=== PATIENT | male | born 1995 | race American Indian/Alaskan Native ===

== ENCOUNTER 2018-05-02 15:00 | Inpatient (IN) | payer SELFPAY ==
[2018-05-02 15:11] VITALS: BMI 24.2
[2018-05-02 15:15] VITALS: RESP 18
[2018-05-02 15:40] LABS: BASO % 1.2 % (0.0-2.0); EOS % 0.6 % (0.0-4.0); LYMPH # 1.5 K/uL (1.0-4.3); LYMPH % 38.6 % (20.0-40.0); MEAN CELL VOLUME 92.8 fL (80.0-94.0); MEAN CORPUSCULAR HGB CONC 33.4 g/dL (33.0-37.0); MEAN PLATELET VOLUME 7.1 fL (7.2-11.7); MONO # 0.3 K/uL (0.0-0.8); MONO % 6.8 % (0.0-10.0); NEUT # 2.1 K/uL (1.8-7.0); NEUT % 52.8 % (50.0-75.0); NRBC % 0.1 % (0.0-2.0); RBC 4.53 Mil/uL (4.40-5.90); RED CELL DISTRIBUTION WIDTH 14.8 % (11.5-14.5); WHITE BLOOD COUNT 3.9 K/uL (4.8-10.8)
[2018-05-02 15:42] LABS: SQUAMOUS EPITHIAL < 1 /hpf (0-5); URINE BILIRUBIN NEGATIVE (NEGATIVE); URINE BLOOD NEGATIVE (NEGATIVE); URINE CLARITY Clear (Clear); URINE COLOR Yellow (YELLOW); URINE GLUCOSE (UA) NORMAL (Normal); URINE LEUKOCYTE ESTERASE NEG Leu/uL (Negative); URINE PROTEIN NEGATIVE (NEGATIVE)
[2018-05-02 15:51] LABS: ALB/GLOB RATIO 1.5 (1.0-2.1); ALBUMIN 4.7 g/dL (3.5-5.0); ALT/SGPT 29 U/L (21-72); AST/SGOT 37 U/L (17-59); BLOOD UREA NITROGEN 7 mg/dL (9-20); CALCIUM 9.3 mg/dl (8.6-10.4); GFR NON-AFRICAN AMERICAN 58
[2018-05-02 16:00] LABS: BARBITURATES, UR NEGATIVE (NEGATIVE); BENZODIAZEPINES, UR NEGATIVE (NEGATIVE); OPIATES, UR NEGATIVE (NEGATIVE); PHENCYCLIDINE, UR NEGATIVE (NEGATIVE)
--- NOTE | 2018-05-02 16:47 | C.PDOC ---
History Of Present Illness 23 year old male presents to the ED requesting detoxification from alcohol. Reports his last alcoholic drink was 2 hours ago which consisted of a chacho and a shot of vodka. Admits to daily drinking. Denies any physical complaints. Denies SI/HI, depression, tremors. Time Seen by Provider: 05/02/18 15:19 Chief Complaint (Nursing): Substance Abuse History Per: Patient History/Exam Limitations: no limitations Onset/Duration Of Symptoms: Days Current Symptoms Are (Timing): Still Present Suicide/Self Injury Attempted (Context): None Modifying Factor(s): Alcohol Associated Symptoms: denies: Depression, Suicidal Thoughts, Suicidal Plan Past Medical History Reviewed: Historical Data, Nursing Documentation, Vital Signs Vital Signs: Last Vital Signs Temp 98.7 F 05/02/18 15:11 Pulse 80 05/02/18 15:11 Resp 18 05/02/18 15:11 BP 151/81 H 05/02/18 15:11 Pulse Ox 98 05/02/18 15:11 - Medical History PMH: No Chronic Diseases Denies: Diabetes, Hepatitis, HIV, HTN, Seizures, Sexually Transmitted Disease Surgical History: No Surg Hx Family History: States: No Known Family Hx - Social History Hx Alcohol Use: Yes Hx Substance Use: Yes - Immunization History Hx Tetanus Toxoid Vaccination: No Hx Influenza Vaccination: No Hx Pneumococcal Vaccination: No Review Of Systems Cardiovascular: Negative for: Other (tremors) Psych: Negative for: Depression, Suicidal ideation Physical Exam - Physical Exam Appears: Toxic Skin: Warm, Dry Head: Normacephalic Eye(s): bilateral: Normal Inspection Neck: Normal ROM Chest: Symmetrical Cardiovascular: Rhythm Regular, No Other (tremors) Respiratory: Normal Breath Sounds, No Rales, No Rhonchi, No Wheezing Gastrointestinal/Abdominal: Soft, No Tenderness Extremity: Normal ROM Extremity: Bilateral: Atraumatic Neurological/Psych: Oriented x3, Normal Speech Gait: Steady ED Course And Treatment - Laboratory Results Result Diagrams: 05/02/18 15:35 05/02/18 15:35 O2 Sat by Pulse Oximetry: 98 (RA) Pulse Ox Interpretation: Normal Progress Note: Blood work, UA, UDS ordered and reviewed. 4:50pm- Patient medically cleared. Given sandwich and juice. Disposition - Disposition Forms: [employer] ([place]) - Scribe Statement The provider has reviewed the documentation as recorded by the Scribe Debbi Paneque All medical record entries made by the Florentin were at my direction and personally dictated by me. I have reviewed the chart and agree that the record accurately reflects my personal performance of the history, physical exam, medical decision making, and the department course for this patient. I have also personally directed, reviewed, and agree with the discharge instructions and disposition.
--- NOTE | 2018-05-02 18:43 | PCM.BM ---
<ShailaCookie - Last Filed: 05/02/18 18:42> Treatment Plan Problems - Problems identified on initial assessmt Potential for alcohol withdrawal Date Initiated: 05/02/18 Time Initiated: 18:42 Assessment reference: NA Status: Active Treatment assets and liabiliti Patient Assests: cooperative, ADL independent, physically healthy, negotiates basic needs, cognitively intact Patient Liabilities: substance abuse (ETOH, THC) - Milieu Protocol Maintain good personal hygiene: daily Encourage regular showers, daily Remind patient to perform daily oral care, daily Assist patient to perform ADL's Conduct patient checks and document Observation sheet: Q15 minutes Maintain personal safety: every shift Educate patient to report safety concerns to staff, every shift Monitor environment for contraband/sharps Medication safety: Monitor for expected outcome, potential side effects: every shift, Assess barriers to learning: every shift, Assess readiness for medication education: every shift <Monika Ortega - Last Filed: 05/03/18 13:43> - Diagnosis (1) Alcohol use disorder, severe, dependence Status: Acute Interventions: 05/03/18 13:43 * Assess 7x/week regarding severity of withdrawal * Educate regarding risks, benefits, side effects and alternatives of medications * Use Motivational Interviewing for abstinence * Use CBT for relapse prevention * Medication management for withdrawal symptoms * Encourage medication assisted treatment *
[2018-05-02] MEDS ORDERED: Aluminum Hydroxide/Magnesium Hydroxide Susp (30 mL) PO PRN (21:00)
[2018-05-03] MEDS: Multiple Vitamins Tab PO SCH (09:58)
--- NOTE | 2018-05-03 10:04 | PCM.PSYCH ---
Initial Psychiatric Evaluation - Initial Psychiatric Evaluation Type of Admission: Voluntary Legal Status: Capacity Chief Complaint (in patient's own words): "I need detox" History of Present Illness and Precipitating Events: Patient is a 23-year-old AAM, single with no children, who works at a [employer] company and lives with his mother in [place]. Patient is here for detox from alcohol. Patient states that he drinks about 5-6 margaritas and 3-4 shots every day for the last 4 years. He smokes about 6 cigarettes per day. He denies any past or present drug use, except that he smokes weed. On top of the withdrawal sxs, he reports nervousness and low mood. Patient states that he tried detox 1x last year at [facility]. He has never tried rehab before. He denies any past psychiatric problems or psychiatric hospitalizations. Psych hx: denies Medical hx: denies Family hx: denies. Current Medications: Active Medications Generic Name Dose Route Start Last Admin Trade Name Freq PRN Reason Stop Dose Admin Al Hydrox/Mg Hydrox/Simethicone 30 ml 05/02/18 21:00 Maalox 30 Ml PO TID PRN Indigestion / Heartburn Chlordiazepoxide 25 mg 05/03/18 00:00 05/03/18 06:09 Librium PO 05/07/18 23:59 25 mg Q6 BETO Administration Taper Chlordiazepoxide 25 mg 05/02/18 21:00 05/02/18 21:38 Librium PO 25 mg Q4H PRN Administration Alcohol Withdrawal Clonidine HCl 0.1 mg 05/02/18 21:00 Catapres PO Q4H PRN Symptoms of alcohol withdrawl Folic Acid 1 mg 05/03/18 10:00 05/03/18 09:58 Folic Acid PO 1 mg DAILY BETO Administration Hydroxyzine HCl 25 mg 05/02/18 19:43 Atarax PO Q8 PRN Anxiety Loperamide HCl 2 mg 05/02/18 21:00 Imodium PO Q8 PRN Diarrhea Multivitamins 1 tab 05/03/18 10:00 05/03/18 09:58 Hexavitamin PO 1 tab DAILY BETO Administration Ondansetron HCl 4 mg 05/02/18 21:00 05/02/18 23:24 Zofran Tab PO 4 mg Q8 PRN Administration Nausea/Vomiting Pseudoephedrine HCl 60 mg 10/07/18 21:00 Sudafed Tab PO QID PRN Nasal/Sinus Congestion Thiamine HCl 100 mg 05/03/18 10:00 05/03/18 09:58 Vitamin B1 Tab PO 100 mg DAILY BETO Administration Trazodone HCl 50 mg 05/02/18 19:43 05/02/18 21:37 Desyrel PO 50 mg HS PRN Administration Insomnia Past Psychiatric History - Past Psychiatric History Previous Treatment History: None Pertinent Medical Hx (Current Medical&Sleep Prob, Allergies): Allergies Allergy/AdvReac Type Severity Reaction Status Date / Time No Known Allergies Allergy Verified 05/02/18 15:10 No Known Home Med 05/02/18 Review of Systems - Neurological Neurological: Tremor - Psychiatric Psychiatric: Abnormal Sleep Pattern, Anxiety, Difficulty Concentrating. absent: Hallucinations, Homicidal Ideation, Suicidal Ideation Mental Status Examination - Personal Presentation Personal Presentation: Looks stated age - Affect Affect: Constricted - Motor Activity Motor Activity: Calm - Reliability in Providing Information Reliability in Providing Information: Good - Speech Speech: Organized - Mood Mood: Anxious - Formal Thought Process Formal Thought Process: No Impairment - Cognitive Functions Orientation: Person, Place, Situation, Time Sensorium: Alert Attention/Concentration: Easily distracted Estimate of Intelligence: Average Judgement: Intact, as evidence by: Insight regarding need for hospitalization Memory: Recent intact, as evidence by: Ability to recall events of the day, Remote intact, as evidenced by: Abilit to recall sig. life events - Risk Risk: Withdrawal, Diminished functioning - Strength & Assets Inventory Strength & Assets Inventory: Cooperative - Limitations Limitations: Other DSM 5 DX - DSM 5 DSM 5 Diagnosis: Alcohol withdrawal Alcohol use d/o - severe - Recommended/Plan of Treatment Treatment Recommendations and Plan of Treatment: Taper with Librium. Trazodone for insomnia if needed. As needed medications All risks, benefits and alternatives of the meds discussed, and the pt agreed and understood. Attend groups and activities Supportive therapy and psychoeducation NC for abstinence CBT for relapse prevention Encourage MAT Refer to rehab or IOP, and self-help groups Teach healthy lifestyle methods, i.e. diet, exercise, meditation Smoking cessation with NC Nicotine patch if needed 34 min Projected ELOS: 4-5 days
[2018-05-04] MEDS: Multiple Vitamins Tab PO SCH (09:23)
--- NOTE | 2018-05-04 10:15 | PCM.PYCHDC ---
Mental Status Examination - Mental Status Examination Orientation: Person, Place, Situation, Time Memory: Intact Mood: Depressed Affect: Constricted Speech: Appropriate Attention: WNL Concentration: WNL Association: WNL Fund of Knowledge: WNL Formal Thought Process: No Impairment Discharge Summary - Discharge Note Consultations:: List each consultation separately and include: 1. Reason for request. 2. Findings. 3. Follow-up Summary of Hospital Course include:: 1. Description of specific treatment plan utilized for patients during their course of treatmen. 2. Summarize the time- course for resolution of acute symptoms and/or regressed behaviors. 3. Describe issues identified and worked on during hospitalization. 4. Describe medication utilized. 5. Describe medical problems identified and treated. 6. Reassessment of suicide risk Summary of Hospital Course: On admission: Patient is a 23-year-old AAM, single with no children, who works at a [employer] and lives with his mother in [place]. Patient is here for detox from alcohol. Patient states that he drinks about 5-6 margaritas and 3-4 shots every day for the last 4 years. He smokes about 6 cigarettes per day. He denies any past or present drug use, except that he smokes weed. On top of the withdrawal sxs, he reports nervousness and low mood. Patient states that he tried detox 1x last year at [facility]. He has never tried rehab before. He denies any past psychiatric problems or psychiatric hospitalizations. Psych hx: denies Medical hx: denies Family hx: denies. Hospital course: The pt was admitted and started on treatment with psychotherapy, support, psychoeducation and medications. IL and CBT used. The pt attended groups and activities, as well as milieu therapy. All the risks and benefits of medications are discussed and the patient understood and agreed. The pt improved with the treatments provided. After care discussed with the patient. Pt left a day early but he was not in withdrawal so he will be a regular d/c . He only wants to go to . - Diagnosis (1) Alcohol use disorder, severe, dependence Status: Acute - Final Diagnosis (DSM 5) Condition upon Discharge: GOOD DSM 5: Alcohol withdrawal Alcohol use d/o - severe Disposition: HOME/ ROUTINE Follow-up Treatment Plan: Continue below medications after discharge. Follow after care plan as discussed. Use relapse prevention skills Return to ER or call 911 if suicidal, homicidal or symptoms relapse. Stay away from stress, alcohol and drugs. See primary doctor regularly and get labs.
[2018-05-04 10:39] VITALS: BP 138/91; PULSE 69; TEMP 97.5; O2SAT 98
== END 2018-05-04 11:25 | disposition home or self-care (01) | DRG 897 ==
LOC: C.ER 15:00 → C.7D 17:32
PROVIDERS: ADMIT Psychiatry & Neurology Psychiatry; ATTEND Psychiatry & Neurology Psychiatry
PROC: GZHZZZZ Group Psychotherapy (ICD-10-PCS; principal; 2018-05-02)
PROC: GZ56ZZZ Individual Psychotherapy, Supportive (ICD-10-PCS; 2018-05-02)
DX: F10.230 Alcohol dependence with withdrawal, uncomplicated (principal); F10.220 Alcohol dependence with intoxication, uncomplicated; F12.10 Cannabis abuse, uncomplicated; Y90.6 Blood alcohol level of 120-199 mg/100 ml; F17.210 Nicotine dependence, cigarettes, uncomplicated